=== PATIENT | female | born 1970 | race African-American/Black ===

== ENCOUNTER 2016-08-06 13:41 | Emergency (ER) | payer OTHER ==
[~2016-08-06] VITALS: Ht 160 cm; Wt 91.0 kg
[~2016-08-06 13:41] MED LIST: ALBU6.7H INH; BUPR150T3 PO; LAMO25 PO; OXYC-360 PO; PREN0.01 PO; TRAZ100T50 PO
[2016-08-06 13:50] VITALS: BP 157/103; PULSE 95; RESP 24; RESP 25; TEMP 98.6; O2SAT 98
[2016-08-06] MEDS ORDERED: RESP: ALBUTEROL 2.5 MG/3 ML NEB (SCH) INH ONE (15:15)
[2016-08-06 15:18] LABS: AUTOMATED NEUTROPHIL # 6.3 TH/MM3 (1.8-7.7); BASOPHIL % 0.4 % (0.0-2.0); EOSINOPHIL # 0.2 TH/MM3 (0-0.4); EOSINOPHIL % 2.5 % (0.0-4.0); HEMATOCRIT 36.4 % (35.0-46.0); HEMO FLAGS DIFF FINAL; LYMPH % 14.5 % (9.0-44.0); LYMPHOCYTE # 1.2 TH/MM3 (1.0-4.8); MEAN CELL VOLUME 79.1 FL (80.0-100.0); MEAN CORPUSCULAR HEMOGLOBIN 27.1 PG (27.0-34.0); MEAN CORPUSCULAR HGB CONC 34.3 % (32.0-36.0); MONO % 4.8 % (0.0-8.0); NEUT % 77.8 % (16.0-70.0); PLATELET COUNT 176 TH/MM3 (150-450); RED CELL DISTRIBUTION WIDTH 15.8 % (11.6-17.2); WHITE BLOOD COUNT 8.1 TH/MM3 (4.0-11.0)
[2016-08-06 15:21] LABS: BICARBONATE 27.1 MEQ/L (21.0-32.0); POTASSIUM 3.6 MEQ/L (3.5-5.1)
--- NOTE | 2016-08-06 16:44 | PD ---
HPI Chief Complaint: Pain: Acute or Chronic Time Seen by Provider: 16:40 Travel History International Travel<30 days: No Contact w/Intl Traveler<30days: No Traveled to known affect area: No History of Present Illness HPI 46-year-old female that presents to the ED for evaluation of left cough pain. Per patient she has a family history of blood clots in the past. Per patient is is which is concerned about. She states that she's had the pain for about a week. Nothing seems to make it better or worse. Per patient she feels that her calf is getting swollen. Denies any chest pain or shortness of breath but does state that she had symptoms of bronchitis which is having the past. Per patient usually uses an albuterol inhaler as well as some medications to help with this. Per patient she has not taken anything for the cough and runny nose. She denies any shortness of breath. She does have a history of hypertension and diabetes. She denies any recent travel. No control use. She has an allergy to penicillin. She has not seen anybody for this. She states that the pain is 8 out of 10 as patient in the cough. Gets worse when she puts weight on it. She denies any fevers chills or sweats. No sick contacts. She does not take any blood thinners. PFSH Past Medical History Cardiovascular Problems: Yes (HTN ) Diabetes: Yes ?: Not LMP: A MONTH AGO Social History Alcohol Use: No Tobacco Use: No Substance Use: No Allergies-Medications (Allergen,Severity, Reaction): Coded Allergies: Penicillin (Verified Allergy, Severe, Swelling, 12/23/09) Reported Meds & Prescriptions Reported Meds & Active Scripts Active Reported Percocet (Oxycodone/Acetaminophen) 5 Mg/325 Mg Tab 1 Tab PO Q6HPRN FOR PAIN Proventil Hfa (Albuterol Sulfate) 6.7 Gm Aero 0 INH UNKNOWN DOSE Lamictal (Lamotrigine) 25 Mg Tab 50 Mg PO BID Bupropion Hcl Xl (Bupropion HCl) 150 Mg Tab 150 Mg PO DAILY Desyrel (Trazodone HCl) 100 Mg Tab 100 Mg PO HS Vit ( Plus) (Prenat Multivit/Porcelain Waxer/Iron/Folic Ac) Tab 1 Tab PO DAILY Review of Systems General / Constitutional: No: Fever, Chills, Weight Gain, Weight Loss, Other Eyes: No: Diploplia, Blurred Vision, Photophobia, Drainage, Redness, Foreign Body Sensation, Pain, Tearing, Blind Spots, Visual changes, Blindness, Other HENT: Positive: Sore Throat, Rhinitis, Congestion, No: Headaches, Vertigo, Lightheadedness, Rhinorrhea, Nosebleed, Neck Stiffness, Neck Pain, Masses, Gingival Bleeding, Dental Difficulties, Ear Discharge, Earache, Other Cardiovascular: No: Chest Pain or Discomfort, Palpitations, Irregular Rhythm, Tachycardia, Diaphoresis, Syncope, Dyspnea on exertion, Varicosities, Edema, Cyanosis, Varicosities, Phlebitis, Claudication, Other Respiratory: Positive: Cough, No: Shortness of Breath, Wheezing, Sneezing, Orthopnea, Hemoptysis, Stridor, Night Sweats, Pleuritic Pain, Other Gastrointestinal: No: Nausea, Vomiting, Diarrhea, Abdominal Pain, Hematemesis, Hematochezia, Constipation, Changes in Bowel Habits, Indigestion, Dysphagia, Loss of Appetite, Other Genitourinary: No: Urgency, Frequency, Dysuria, Nocturia, Hematuria, Decreased Urinary Output, Oliguria, Hesitancy, Dribbling, Incontinence, Pelvic Pain, Flank Pain, Dyspareunia, Discharge, Dysmenorrhea, Menorrhagia, Metorrhagia, Vaginal Bleeding, Other Musculoskeletal: Positive: Edema, Pain, No: Myalgias, Arthralgias, Limited ROM , Weakness, Cramping, Atrophy, Other Skin: No Rash, No Itching, No Dryness, No Lumps, No Hives, No Change in Pigmentation, No Change in nails, No Alopecia, No Lesions, No Breast Lumps, No Breast Tenderness, No Breast Swelling, No Other Neurologic: No: Weakness, Dizziness, Syncope, Focal Abnormalities, Coordination Problem, Tremor, Ataxia, Headache, Change in Mentation, Slurred Speech, Paresthesia, Incontinence, Seizures, Sensory Disturbance, Other Psychiatric: No: Anxiety, Depression, Suicidal Ideations, Disorder of Thought, Mood Disorder, Substance Abuse, Homicidal Ideation, Other Endocrine: No: Heat Intolerance, Cold Intolerance, Polyuria, Polydipsia, Other Hematologic/Lymphatic: No: Easy Bruising, Lymph Node Enlargement, Other Physical Exam Narrative GENERAL: Well-nourished, well-developed patient in no apparent distress. SKIN: Warm and dry. HEAD: Atraumatic. Normocephalic. EYES: Pupils equal and round reactive to light and accommodation. No scleral icterus. No injection or drainage. ENT: No nasal bleeding or discharge. Mucous membranes pink and moist. TMs are clear with no sign of infection or perforation. No mastoid tenderness. Ear canals are intact bilaterally. No lymphadenopathy. Nostril mucosa is red and moist with clear mucus noted. No sinus tenderness to palpation noted. Tonsils are not enlarged or swollen. No ulvua Deviation. Tongue is midline. NECK: Trachea midline. No JVD. No meningeal signs noted CARDIOVASCULAR: Regular rate and rhythm. RESPIRATORY: No accessory muscle use. Clear to auscultation. Breath sounds equal bilaterally. GASTROINTESTINAL: Abdomen soft, non-tender, nondistended. Hepatic and splenic margins not palpable. MUSCULOSKELETAL: Extremities without clubbing, cyanosis, or edema. No obvious deformities. Full range of motion of the lower extremities. Patient does have reproducible pain on the left calf on the medial aspect. Patient does have some swelling compared to the right. 2+ pulses bilaterally. NEUROLOGICAL: Awake and alert. No obvious cranial nerve deficits. Motor grossly within normal limits. Five out of 5 muscle strength in the arms and legs. Normal speech. PSYCHIATRIC: Appropriate mood and affect; insight and judgment normal. Data Data Last Documented VS Vital Signs Date Time Temp Pulse Resp B/P Pulse Ox O2 Delivery O2 Flow Rate FiO2 08/06/16 13:50 98.6 95 25 157/103 98 Room Air Orders Complete Blood Count With Diff (08/06/16 14:47) Basic Metabolic Panel (Bmp) (08/06/16 14:47) Us Leg Venous Doppler (08/06/16 14:47) Albuterol Neb (Albuterol Neb) (08/06/16 15:15) Prothrombin Time / Inr (Pt) (08/06/16 15:05) Act Partial Throm Time (Ptt) (08/06/16 15:05) Labs Laboratory Tests Test 08/06/16 14:55 White Blood Count 8.1 TH/MM3 Red Blood Count 4.60 MIL/MM3 Hemoglobin 12.5 GM/DL Hematocrit 36.4 % Mean Corpuscular Volume 79.1 FL Mean Corpuscular Hemoglobin 27.1 PG Mean Corpuscular Hemoglobin 34.3 % Concent Red Cell Distribution Width 15.8 % Platelet Count 176 TH/MM3 Mean Platelet Volume 8.5 FL Neutrophils (%) (Auto) 77.8 % Lymphocytes (%) (Auto) 14.5 % Monocytes (%) (Auto) 4.8 % Eosinophils (%) (Auto) 2.5 % Basophils (%) (Auto) 0.4 % Neutrophils # (Auto) 6.3 TH/MM3 Lymphocytes # (Auto) 1.2 TH/MM3 Monocytes # (Auto) 0.4 TH/MM3 Eosinophils # (Auto) 0.2 TH/MM3 Basophils # (Auto) 0.0 TH/MM3 CBC Comment DIFF FINAL Differential Comment Sodium Level 139 MEQ/L Potassium Level 3.6 MEQ/L Chloride Level 104 MEQ/L Carbon Dioxide Level 27.1 MEQ/L Anion Gap 8 MEQ/L Blood Urea Nitrogen 4 MG/DL Creatinine 0.68 MG/DL Estimat Glomerular Filtration 113 ML/MIN Rate Random Glucose 82 MG/DL Calcium Level 8.6 MG/DL MDM Medical Decision Making Medical Screen Exam Complete: Yes Emergency Medical Condition: Yes Medical Record Reviewed: Yes Interpretation(s) CBC & BMP Diagram 08/06/16 14:55 Ultrasound of the left leg did show DVT. Differential Diagnosis Bronchitis versus DVT versus URI versus sinusitis Narrative Course 46-year-old female that presents to the ED for evaluation of cold-like symptoms and possible DVT. Patient was properly examined and was found to have signs and symptoms concerning for DVT as well as bronchitis. Ultrasound labs were ordered. Ultrasound and labs showed DVT on the left side. Otherwise unremarkable. Patient will be discharged home with liquids. Case was discussed in my attending who agrees with plan. Patient will be given acetaminophen to cover for infection. Told to continue using her inhaler. Follow with PCP. Patient was told side effects of medication including bleeding. See ED for any worsening symptoms. Diagnosis Primary Impression: DVT (deep venous thrombosis) Qualified Code: I82.422 - Acute deep vein thrombosis (DVT) of iliac vein of left lower extremity Additional Impression: Bronchitis Patient Instructions: General Instructions Additional Instructions: Follow-up with your doctor in the next week or 2. Take medication as prescribed. Medication that was given to you today can cause bleeding. You my Radhames cc. Watch for any signs of extra bleeding including bleeding from the rectum, coughing blood, blood in the urine. It so make sure you follow up with ED or PCP. Med/Other Pt SpecificInfo: Prescription(s) given Scripts Apixaban (Eliquis)5 Mg Tab10 Mg PO BID #14 TAB Ref 0 Prov:Nikolas Medina MD 08/06/16 Apixaban (Eliquis)5 Mg Tab5 Mg PO BID #60 TAB Ref 0 Prov:Nikolas Medina MD 08/06/16 Disposition: 01 DISCHARGE HOME Condition: Stable Stevenson Mccurdy Aug 06, 2016 16:44
--- NOTE | 2016-08-06 18:02 | RADRPT ---
EXAM DATE/TIME: 08/06/2016 16:40 [facility] COMPARISON: No previous studies available for comparison. INDICATIONS : Left leg swelling and pain. MEDICAL HISTORY : Hypertension. Diabetes. SURGICAL HISTORY : None. ENCOUNTER: Initial ACUITY: 1 week PAIN SCORE: 8/10 LOCATION: Left leg. TECHNIQUE: Venous ultrasound of the leg was performed from the inguinal ligament to the proximal calf. Real-tl e, color Doppler and spectral tracing, compression and augmentation techniques were used. FINDINGS: Occlusive deep venous thrombosis is noted within the left popliteal, peroneal and posterior tibial ve ins. There is no evidence of deep venous thrombosis within the left common femoral or superficial fe moral veins. CONCLUSION: Occlusive deep venous thrombosis within the left popliteal, peroneal and posterior tibial veins. Jovon Moy MD on August 06, 2016 at 17:49 Board Certified Radiologist. This report was verified electronically.
[2016-08-06] MEDS ORDERED: APIX5TAB PO (18:08)
[2016-08-06] MEDS ORDERED: AZIT250T3 PO (18:15)
[2016-08-06] MEDS ORDERED: HYDR-3533 PO (18:26)
[2016-08-06 18:36] VITALS: BP 188/116
== END 2016-08-06 18:39 | disposition home or self-care (01) ==
LOC: NEDAMB 13:41
DX: I82.492 Acute embolism and thrombosis of other specified deep vein of left lower extremity (principal); J40 Bronchitis, not specified as acute or chronic; M79.89 Other specified soft tissue disorders; I10 Essential (primary) hypertension; E11.9 Type 2 diabetes mellitus without complications
CPT/HCPCS: 80048; 85025; 93971; 94664; 99284; J7613